=== PATIENT | female | born 1985 | race Caucasian/White ===

== ENCOUNTER 2017-06-19 00:06 | Inpatient (IN) | payer BC ==
[2017-06-19] MEDS ORDERED: Methylergonovine 0.2 MG/1 ML Amp IM PRN (00:14)
[2017-06-19] MEDS ORDERED: Misoprostol 400 MCG (4 X 100 MCG TAB) RECTAL PRN (00:14)
[2017-06-19] MEDS ORDERED: Acetaminophen 325 MG Tab PO PRN (00:14)
[2017-06-19] MEDS ORDERED: Ondansetron 4 MG/2 ML SDV IV PRN (00:14)
[2017-06-19] MEDS ORDERED: Nalbuphine 20 MG/1 ML Amp IVPUSH PRN (00:14)
[2017-06-19] MEDS ORDERED: Sodium Chloride 0.9% 10 ML Syringe FLUSH PRN (00:14)
[2017-06-19] MEDS ORDERED: fentaNYL 100 MCG/2 ML SDV IVPUSH PRN (00:14)
[2017-06-19] MEDS ORDERED: Lidocaine 1% 30 ML SDV INJECT PRN (00:14)
[2017-06-19] MEDS ORDERED: Misoprostol 25 MCG (1/4 of 100 MCG) Tab VAG PRN (00:14)
[2017-06-19] MEDS ORDERED: Lactated Ringers 500 ML IV ONE (00:14)
[2017-06-19] MEDS ORDERED: Carboprost Tromethamine 250 MCG/1 ML Amp IM PRN (00:14)
--- NOTE | 2017-06-19 00:34 | PCM.LDHP ---
L&D History of Present Illness - General Date of Service: 06/19/17 Admit Problem/Dx: Patient Status Order with Admit Dx/Problem 06/19/17 00:14 Patient Status [ADT] Routine Admission Diagnosis/Problem Admission Diagnosis/Problem care Source of Information: Patient History Limitations: Reports: No Limitations - History of Present Illness Introduction:: 31-year-old at 41w0d presents for induction of labor for postdates. Patient has been feeling well. She is having lots of [place]ch contractions but no regular contractions. Baby has been active. No vaginal bleeding or leaking of fluid. No new headaches. She has had swelling in the hands and feet for the past several weeks. Past Medical History - Past Health History Medical/Surgical History: Denies Medical/Surgical History - Past Surgical History Head Surgeries/Procedures: Reports: None Social & Family History - Family History Cardiac: Reports: Hypertension (Mother) Oncologic: Reports: Prostate (Father), Skin (Melanoma--Mother) - Tobacco Use Smoking Status *Q: Never Smoker - Alcohol Use Alcohol Use History: No - Sexual History Sexual History: Reports: Sexually Active, Single Partner - Living Situation & Occupation Living situation: Reports: Occupation: Employed H&P Review of Systems - Review of Systems: Review Of Systems: See Below General: Reports: No Symptoms HEENT: Reports: No Symptoms Pulmonary: Reports: No Symptoms Cardiovascular: Reports: No Symptoms Gastrointestinal: Reports: No Symptoms Genitourinary: Reports: No Symptoms Musculoskeletal: Reports: No Symptoms Skin: Reports: No Symptoms Psychiatric: Reports: No Symptoms Neurological: Reports: No Symptoms Hematologic/Lymphatic: Reports: No Symptoms Immunologic: Reports: No Symptoms L&D Exam - Exam Exam: See Below - OB Specific Contraction Intensity: Irritability Movement: Active Heart Tones: Present Heart Tones per Min: 135 Heart Rate (FHR) Variability: Moderate (6-25 bmp) Presentation: Vertex - Arreola Score Arreola Score Cervix Position: Posterior Arreola Score Consistency: Soft Arreola Score Effacement: >80% Arreola Score Dilation: 1-2 cm Arreola Score Infant's Station: -2 Arreola Score Total: 7 - Exam General: Alert, Oriented HEENT: Mucosa Moist & Moody, Pupils Reactive Lungs: Clear to Auscultation, Normal Respiratory Effort Cardiovascular: Regular Rate, Regular Rhythm. No: Systolic Murmur, Diastolic Murmur Genitourinary: Normal external exam Back Exam: Normal Inspection, Full Range of Motion Extremities: Pedal Edema (1+ bilaterally) Skin: Warm, Dry, Intact Psychiatric: Alert - Problem List (1) Post-dates SNOMED Code(s): 14180786 ICD Code: O48.0 - POST-TERM Status: Acute Current Visit: Yes Problem List Initiated/Reviewed/Updated: Yes Orders Last 24hrs: Active Orders 24 hr Category Date Time Status Patient Status [ADT] Routine ADT 06/19/17 00:14 Ordered Communication Order [RC] ASDIRECTED Care 06/19/17 00:14 Ordered Communication Order [RC] ASDIRECTED Care 06/19/17 00:14 Ordered Communication Order [RC] ASDIRECTED Care 06/19/17 00:14 Ordered Communication Order [RC] ASDIRECTED Care 06/19/17 00:14 Ordered Communication Order [RC] ASDIRECTED Care 06/19/17 00:14 Ordered Communication Order [RC] ASDIRECTED Care 06/19/17 00:14 Ordered Heart Tones [RC] PER UNIT ROUTINE Care 06/19/17 00:14 Ordered Monitoring [RC] PER UNIT ROUTINE Care 06/19/17 00:14 Ordered Notify Provider Vital Signs OB [RC] ASDIRECTED Care 06/19/17 00:14 Ordered Notify Provider [RC] PRN Care 06/19/17 00:14 Ordered Notify Provider [RC] PRN Care 06/19/17 00:14 Ordered Notify Provider [RC] PRN Care 06/19/17 00:14 Ordered Notify Provider [RC] STAT Care 06/19/17 00:14 Ordered Peripheral IV Care [RC] . DIRECTED Care 06/19/17 00:15 Ordered Pump Management, Intrathecal [RC] ASDIRECTED Care 06/19/17 00:14 Ordered Up ad Martha [RC] ASDIRECTED Care 06/19/17 00:14 Ordered Up ad Martha [RC] PER UNIT ROUTINE Care 06/19/17 00:14 Ordered Vaginal Exam [RC] PRN Care 06/19/17 00:14 Ordered Vital Signs [RC] PER UNIT ROUTINE Care 06/19/17 00:14 Ordered Vital Signs [RC] PER UNIT ROUTINE Care 06/19/17 00:14 Ordered Clear Liquid Diet [DIET] Diet 06/19/17 Breakfast Ordered ALKALINE PHOSPHATASE [CHEM] Routine Lab 06/19/17 00:27 Ordered ASPARTATE AMNIOTRANSFERASE,AST [CHEM] Routine Lab 06/19/17 00:27 Ordered BLOOD UREA NITROGEN,BUN [CHEM] Routine Lab 06/19/17 00:27 Ordered CBC W/O DIFF,HEMOGRAM [HEME] Routine Lab 06/19/17 00:14 Ordered CREATININE W/GFR [CHEM] Routine Lab 06/19/17 00:27 Ordered LACTATE DEHYDROGENASE,LDH [CHEM] Routine Lab 06/19/17 00:27 Ordered PROTEIN/CREATININE RATIO,URINE [URCHEM] Routine Lab 06/19/17 00:27 Uncollected URIC ACID [CHEM] Routine Lab 06/19/17 00:27 Ordered Acetaminophen [Tylenol] Med 06/19/17 00:14 Ordered 650 mg PO Q4H PRN Carboprost Tromethamine [Hemabate DS] Med 06/19/17 00:14 Ordered 250 mcg IM ASDIRECTED PRN Lactated Ringers @ 125 MLS/HR(1000ml) Med 06/19/17 00:15 Ordered Lactated Ringers [Ringers, Lactated] 1,000 ml IV ASDIRECTED Lactated Ringers [Ringers, Lactated] 500 ml Med 06/19/17 00:14 Ordered IV .BOLUS Lidocaine 1% [Xylocaine-MPF 1%] Med 06/19/17 00:14 Ordered 10 ml INJECT ASDIRECTED PRN Methylergonovine [Methergine] Med 06/19/17 00:14 Ordered 0.2 mg IM ASDIRECTED PRN Misoprostol [Cytotec] Med 06/19/17 00:14 Ordered 25 mcg VAG Q4H PRN Misoprostol [Cytotec] Med 06/19/17 00:14 Ordered 800 mcg RECTAL ASDIRECTED PRN Nalbuphine [Nubain] Med 06/19/17 00:14 Ordered 10 mg IVPUSH Q3H PRN Ondansetron [Zofran] Med 06/19/17 00:14 Ordered 4 mg IV Q4H PRN Oxytocin 30 Units in NS @ 2 MUNITS/MIN(500ml) Med 06/19/17 00:15 Ordered Oxytocin/Normal Saline [Pitocin in NS 30 UNIT/500 ML] 30 unit in 500 ml IV TITRATE Sodium Chloride 0.9% [Saline Flush] Med 06/19/17 00:14 Ordered 10 ml FLUSH ASDIRECTED PRN fentaNYL [Sublimaze] Med 06/19/17 00:14 Ordered 50 mcg IVPUSH Q1H PRN Peripheral IV Insertion Adult [OM.PC] Urgent Oth 06/19/17 00:14 Ordered Saline Lock Insert [OM.PC] Routine Oth 06/19/17 00:14 Ordered Resuscitation Status Routine Resus Stat 06/19/17 00:14 Ordered Medication Orders Acetaminophen (Tylenol) 650 mg PO Q4H PRN PRN Reason: Pain (Mild 1-3) and fever Carboprost Tromethamine (Hemabate Ds) 250 mcg IM ASDIRECTED PRN PRN Reason: HEMORRHAGE Fentanyl (Sublimaze) 50 mcg IVPUSH Q1H PRN PRN Reason: Pain (moderate 4-6) Lactated Ringer's (Ringers, Lactated) 500 mls @ 999 mls/hr IV .BOLUS ONE Stop: 06/19/17 00:44 Lactated Ringer's (Ringers, Lactated) 1,000 mls @ 125 mls/hr IV ASDIRECTED AIDEN Oxytocin/Sodium Chloride (Pitocin In Ns 30 Unit/500 Ml) 30 unit in 500 mls @ 2 mls/hr IV TITRATE AIDEN; 2 MUNITS/MIN PRN Reason: Protocol Lidocaine HCl (Xylocaine-Mpf 1%) 10 ml INJECT ASDIRECTED PRN PRN Reason: Perineal Repair Methylergonovine Maleate (Methergine) 0.2 mg IM ASDIRECTED PRN PRN Reason: Hemorrhage Misoprostol (Cytotec) 800 mcg RECTAL ASDIRECTED PRN PRN Reason: Hemorrhage Misoprostol (Cytotec) 25 mcg VAG Q4H PRN PRN Reason: cervical ripening Nalbuphine HCl (Nubain) 10 mg IVPUSH Q3H PRN PRN Reason: Pain (moderate 4-6) Ondansetron HCl (Zofran) 4 mg IV Q4H PRN PRN Reason: Nausea/Vomiting Sodium Chloride (Saline Flush) 10 ml FLUSH ASDIRECTED PRN PRN Reason: Keep Vein Open Assessment/Plan Comment:: 31-year-old at 41w0d for induction of labor for postdates 1. Admit to L&D 2. Cytotec every 4 hours PRN for cervical ripening 3. Pitocin for augmentation of labor if indicated 4. AROM when able 5. Patient's initial BP was elevated so will obtain PIH labs 6. Expectant management. Anticipate . Vika Pearce MD
[2017-06-19] MEDS: Oxytocin/Normal Saline 30 UNIT/500 ML BAG IV SCH ×3 (06:08→21:10)
[2017-06-19] MEDS: Lactated Ringers 1,000 ML IV SCH ×3 (08:28→17:23)
[2017-06-19] MEDS ORDERED: fentaNYL 100 MCG/2 ML SDV ONE (12:31)
[2017-06-19] MEDS ORDERED: EPINEPHrine 1 MG/ML SDV ONE (12:31)
--- NOTE | 2017-06-19 12:57 | PCM.SN ---
- Free Text/Narrative Note: Intrathecal. Sitting position, sterile prep and drape. 1 % lidocaine w bicarb for skinwheal to L2 L3 interspace, introducer, 24 ga pencan x 1. Pos CSF, neg heme, neg parsthesia. 0.1 ml pf 1:1000 epi, 0.4 ml pf ns , 20 mcg pf sufenta, 30 mcg pf fentanyl and 6 mg of 0.75% pf bupivacaine injected after CSF aspiration. Pt to L lateral position, procedure time 1235 to 1300
[2017-06-19] MEDS ORDERED: Benzocaine/Menthol 20%-0.5% Spray 56 GM Canister TOP PRN (20:14)
[2017-06-19] MEDS ORDERED: Simethicone 80 MG Tab.Chew PO PRN (20:14)
[2017-06-19] MEDS ORDERED: Oxytocin 10 Units/1 ML SDV IM PRN (20:14)
--- NOTE | 2017-06-19 20:23 | PCM.DEL ---
L & D Note - General Info Date of Service: 06/19/17 Mother's Due Date: 06/12/17 - Delivery Note Labor: Augmented by Oxytocin, Induced by ARM Cervical Ripening Method: Misoprostil Delivery Outcome: Livebirth Infant Delivery Method: Spontaneous Vaginal Delivery-Single Delivery Mode: Vacuum Extraction Presentation: Vertex Nuchal Cord: None Anesthesia Type: Local, Intrathecal Anesthetic: Lidocaine (Xylocaine) 1% Plain Local Anesthetic Volume: 4cc Amniotic Fluid Description: Meconium Stained Episiotomy Type: None Laceration: 1st Degree, Labial (Right) Suture type: Vicryl Suture size: 4-0 Placenta: Intact, Spontaneous Cord: 3 Vessels Estimated Blood Loss: 275 Resuscitation Needed: Yes : Suctioned, Bulb Syringe, Stimulated, Warmed, Mcalester Used, Warmer Used Provider: Vika Pearce Score 1 min: 6 Score 5 min: 9 Post Delivery Events: Shoulder Dystocia (Resolved with McRobert's and suprapubic pressure) Delivery Comments (Free Text/Narrative):: 31-year-old female presented for IOL at 41w0d. 1 dose of Cytotec was used for cervical ripening. Pitocin and AROM were used for augmentation of labor. Patient received an intrathecal for pain control. She progressed to complete dilation around 1600 today and labored down. She started pushing around 1705. Patient pushed well with slow but steady progress. At approximately 1920, the decision was made to proceed with vacuum extraction due to maternal fatigue. The vaccum was applied for 14 minutes. Good progress was noted with each contraction. There were no pop-offs. head was delivered without difficulty. A shoulder dystocia was noted. Patient was placed in McRobert's positive and suprapubic pressure was applied. Shoulder then delivered. Baby was taken to the warmer for resuscitation and had Apgars of 6 and 9 at 1 and 5 minutes respectively. Perineum was examined and found to be intact. A 1st degree labial tear was noted and was repaired with 4-0 Vicryl. The placenta delivered a short time later and was noted to be intact. Initially bleeding was appropriate but increased about 4 minutes after delivery of the placenta. Fundal massage was performed. Several large clots were removed from the lower uterine segment. Bleeding was then noted to be appropriate. Patient tolerated the procedure well. Induction Criteria - Arreola Score Arreola Score Dilation: 1-2 cm Arreola Score Effacement: >80% Arreola Score 's Station: -2 Arreola Score Consistency: Soft Arreola Score Cervix Position: Posterior Arreola Score Total: 7 Arreola Score Presenting Part: Reports: Cephalic - Induction Gestational Age >/= 39 wks: Yes Estimated Pelvis: Reports: Adequate Reassuring Monitoring Strip: Yes Absence of Tachy Systole: Yes - Augmentation Estimated Pelvis: Reports: Adequate Weight Estimated:: Reports: AGA Reassuring Monitoring Strip: Yes Absence of Tachy Systole: Yes Vacuum Extractor Progress Note - Alternative Labor Strategies Considered Alternative Labor Strategies Considered:: Reports: Yes Strategies Considered:: Reports: Position Changes Used to Facilitate Rotation & Descent, Empty Bladder, Rest Indications Considered:: Reports: Yes Indications:: Reports: Shortening of 2nd Stage for Maternal Benefit - Patient Prepared Patient Prepared:: Reports: Yes Informed Consent:: Reports: Verbal Risks: Reports: Yes Risks Include:: Reports: Shoulder Dystocia, Maternal Injury Anesthesia/Analgesia Adequate:: Reports: Yes - Probability of Success High Probability of Success:: Reports: Yes Weight Estimated:: Reports: AGA Patient Diabetic:: Reports: No Pelvis Adequate:: Reports: Yes Asynclitic:: Reports: No Station:: 2+ - Application Time Maximum Application Time & Number of Pop-Offs Predetermined:: Reports: Yes (3) Type of Vacuum Used:: Reports: Cup: Mushroom type Vacuum Extraction: Successful - Exit Strategy Exit strategy available:: Reports: Yes and resuscitation teams readily available:: Reports: Yes - Patient Data Vitals - Most Recent: Last Vital Signs Temp 36.2 C 06/19/17 14:30 Pulse 60 06/19/17 15:30 Resp 16 06/19/17 15:00 BP 134/65 06/19/17 15:30 Pulse Ox 100 06/19/17 15:30 Weight - Most Recent: 103.873 kg I&O - Last 24 Hours: Intake & Output 06/19/17 06/19/17 06/19/17 06:59 14:59 22:59 Intake Total 1000 Output Total 500 Balance 1000 -500 Lab Results Last 24 Hours: Laboratory Results - last 24 hr 06/19/17 06/19/17 06/19/17 Range/Units 00:35 00:35 05:00 WBC 9.8 (5.0-10.0) 10^3/uL RBC 3.99 L (4.2-5.4) 10^6/uL Hgb 11.6 L (12.0-16.0) g/dL Hct 33.9 L (37.0-47.0) % MCV 85.0 (80-100) fL MCH 29.1 (27.0-34.0) pg MCHC 34.2 (33.0-35.0) g/dL Plt Count 332 (150-450) 10^3/uL BUN 12 (7-18) mg/dL Creatinine 0.7 (0.6-1.3) mg/dL Est Cr Clr Drug Dosing TNP Estimated GFR (MDRD) > 60 Uric Acid 4.7 (2.6-7.2) mg/dL AST 23 (10-42) IU/L Alkaline Phosphatase 179 H (42-121) IU/L Lactate Dehydrogenase 123 (91-180) IU/L Ur Random Creatinine 127 mg/dL U Random Total Protein 45 H (0.00-9.9) mg/dL Protein/Creatinin Ratio 0.35 Med Orders - Current: Current Medications Acetaminophen (Tylenol) 650 mg PO Q4H PRN PRN Reason: Pain (Mild 1-3) and fever Carboprost Tromethamine (Hemabate Ds) 250 mcg IM ASDIRECTED PRN PRN Reason: HEMORRHAGE Methylergonovine Maleate (Methergine) 0.2 mg IM ASDIRECTED PRN PRN Reason: Hemorrhage Misoprostol (Cytotec) 800 mcg RECTAL ASDIRECTED PRN PRN Reason: Hemorrhage Misoprostol (Cytotec) 25 mcg VAG Q4H PRN PRN Reason: cervical ripening Last Admin: 06/19/17 01:14 Dose: 25 mcg Ondansetron HCl (Zofran) 4 mg IV Q4H PRN PRN Reason: Nausea/Vomiting Last Admin: 06/19/17 12:29 Dose: 4 mg Sodium Chloride (Saline Flush) 10 ml FLUSH ASDIRECTED PRN PRN Reason: Keep Vein Open Discontinued Medications Epinephrine HCl (Adrenalin) Confirm Administered Dose 1 mg .ROUTE .STK-MED ONE Stop: 06/19/17 12:32 Fentanyl (Sublimaze) 50 mcg IVPUSH Q1H PRN PRN Reason: Pain (moderate 4-6) Fentanyl (Sublimaze) Confirm Administered Dose 100 mcg .ROUTE .STK-MED ONE Stop: 06/19/17 12:32 Lactated Ringer's (Ringers, Lactated) 500 mls @ 999 mls/hr IV .BOLUS ONE Stop: 06/19/17 00:44 Last Admin: 06/19/17 05:45 Dose: 999 mls/hr Lactated Ringer's (Ringers, Lactated) 1,000 mls @ 125 mls/hr IV ASDIRECTED AIDEN Last Admin: 06/19/17 17:23 Dose: 125 mls/hr Oxytocin/Sodium Chloride (Pitocin In Ns 30 Unit/500 Ml) 30 unit in 500 mls @ 2 mls/hr IV TITRATE AIDEN; 2 MUNITS/MIN PRN Reason: Protocol Last Titration: 06/19/17 20:04 Dose: 500 munits/min, 500 mls/hr Lidocaine HCl (Xylocaine-Mpf 1%) 10 ml INJECT ASDIRECTED PRN PRN Reason: Perineal Repair Last Admin: 06/19/17 19:47 Dose: 10 ml Nalbuphine HCl (Nubain) 10 mg IVPUSH Q3H PRN PRN Reason: Pain (moderate 4-6) Last Admin: 06/19/17 10:14 Dose: 10 mg Sodium Bicarbonate (Sodium Bicarbonate 4.2%) Confirm Administered Dose 5 meq .ROUTE .STK-MED ONE Stop: 06/19/17 12:32 Sufentanil Citrate (Sufenta) Confirm Administered Dose 50 mcg .ROUTE .STK-MED ONE Stop: 06/19/17 12:32 - Problem List & Annotations (1) Post-dates SNOMED Code(s): 09297984 Code(s): O48.0 - POST-TERM Status: Acute Current Visit: Yes (2) Status post vacuum-assisted vaginal delivery SNOMED Code(s): 089280965 Code(s): Z87.42 - PERSONAL HISTORY OF OTH DISEASES OF THE FEMALE GENITAL TRACT Status: Acute Current Visit: Yes (3) Obstetric labial laceration, delivered, current hospitalization SNOMED Code(s): 854946826 Code(s): O70.0 - FIRST DEGREE PERINEAL LACERATION DURING DELIVERY Status: Acute Current Visit: Yes - Problem List Review Problem List Initiated/Reviewed/Updated: Yes - My Orders Last 24 Hours: My Active Orders 06/19/17 00:14 Patient Status [ADT] Routine Communication Order [RC] ASDIRECTED Communication Order [RC] ASDIRECTED Communication Order [RC] ASDIRECTED Communication Order [RC] ASDIRECTED Communication Order [RC] ASDIRECTED Notify Provider Vital Signs OB [RC] ASDIRECTED Notify Provider [RC] PRN Notify Provider [RC] STAT Up ad Martha [RC] PER UNIT ROUTINE Vital Signs [RC] PER UNIT ROUTINE Acetaminophen [Tylenol] 650 mg PO Q4H PRN Carboprost Tromethamine [Hemabate DS] 250 mcg IM ASDIRECTED PRN Methylergonovine [Methergine] 0.2 mg IM ASDIRECTED PRN Misoprostol [Cytotec] 25 mcg VAG Q4H PRN Misoprostol [Cytotec] 800 mcg RECTAL ASDIRECTED PRN Ondansetron [Zofran] 4 mg IV Q4H PRN Sodium Chloride 0.9% [Saline Flush] 10 ml FLUSH ASDIRECTED PRN Peripheral IV Insertion Adult [OM.PC] Urgent Saline Lock Insert [OM.PC] Routine Resuscitation Status Routine 06/19/17 20:14 Up ad Martha [RC] ASDIRECTED Vital Signs [RC] PFP Consult to Glass Frame Fitter [CONS] Routine Benzocaine/Menthol [Dermoplast Pain Relief [place]] See Dose Instructions TOP Q4H PRN Docusate Sodium [Colace] 100 mg PO BID PRN Ibuprofen [Motrin] 800 mg PO Q8H PRN Oxytocin [Pitocin] 10 unit IM ONETIME PRN Simethicone 80 mg PO Q4H PRN Assess Lochia [WOMSER] Per Unit Routine Assess Uterine Involution [WOMSER] Per Unit Routine Breast Pump [WOMSER] Per Unit Routine Ice Therapy [OM.PC] Per Unit Routine Perineal Care [OM.PC] Per Unit Routine Saline Lock Insert [OM.PC] Urgent Sitz Bath [OM.PC] Per Unit Routine 06/20/17 Breakfast Regular Diet [DIET] - Assessment Assessment:: 31-year-old, now , status post VAVD at 41w0d - Plan Plan:: 1. Initiate routine cares 2. Mother plans to breastfeed 3. Closely monitor bleeding 4. Anticipate discharge 06/19/17 Vika Pearce MD
[2017-06-19] MEDS ORDERED: Labetalol 20 MG/4 ML Syringe IVPUSH ONE (21:55)
[2017-06-19] MEDS: Ibuprofen 800 MG Tab PO PRN (23:05)
[2017-06-19] MEDS: Docusate Sodium 100 MG Cap PO PRN (23:06)
[2017-06-20] MEDS: Ibuprofen 800 MG Tab PO PRN (16:40)
[2017-06-20] MEDS: Docusate Sodium 100 MG Cap PO PRN (22:40)
[2017-06-21] MEDS: Ibuprofen 800 MG Tab PO PRN (03:59)
[2017-06-21] MEDS: Docusate Sodium 100 MG Cap PO PRN (08:52)
[2017-06-21] MEDS ORDERED: fentaNYL 100 MCG/2 ML SDV ITHECAL ONE (11:14)
--- NOTE | 2017-06-21 11:14 | PCM.PNPP ---
- General Info Date of Service: 06/20/17 Subjective Update: 31-year-old, now , PPD#1 status post VAVD at 41w0d. Patient is doing well. She has some mild to moderate perineal pain but otherwise feels well. She is urinating without difficulty. She is ambulating and tolerating a general diet. No fever or chills. She is , which is going well. No concerns per patient or per nursing. Functional Status: Reports: Pain Controlled, Tolerating Diet, Ambulating, Urinating. Denies: New Symptoms - Review of Systems General: Reports: No Symptoms HEENT: Reports: No Symptoms Pulmonary: Reports: No Symptoms Cardiovascular: Reports: No Symptoms Gastrointestinal: Reports: No Symptoms Musculoskeletal: Reports: No Symptoms Skin: Reports: No Symptoms Neurological: Reports: No Symptoms Psychiatric: Reports: No Symptoms - General Info Date of Service: 06/20/17 - Patient Data Vital Signs - Most Recent: Last Vital Signs Temp 36.7 C 06/21/17 10:32 Pulse 85 06/21/17 10:32 Resp 16 06/21/17 10:32 BP 143/79 H 06/21/17 10:32 Pulse Ox 99 06/21/17 10:32 Weight - Most Recent: 103.873 kg Med Orders - Current: Current Medications Acetaminophen (Tylenol) 650 mg PO Q4H PRN PRN Reason: Pain (Mild 1-3) and fever Last Admin: 06/21/17 08:52 Dose: 650 mg Benzocaine/Menthol (Dermoplast Pain Relief [place]) 0 gm TOP Q4H PRN PRN Reason: Perineal comfort measures Last Admin: 06/19/17 23:06 Dose: 1 spray Carboprost Tromethamine (Hemabate Ds) 250 mcg IM ASDIRECTED PRN PRN Reason: HEMORRHAGE Docusate Sodium (Colace) 100 mg PO BID PRN PRN Reason: Constipation Last Admin: 06/21/17 08:52 Dose: 100 mg Ibuprofen (Motrin) 800 mg PO Q8H PRN PRN Reason: Mild Pain or Fever Last Admin: 06/21/17 03:59 Dose: 800 mg Methylergonovine Maleate (Methergine) 0.2 mg IM ASDIRECTED PRN PRN Reason: Hemorrhage Misoprostol (Cytotec) 800 mcg RECTAL ASDIRECTED PRN PRN Reason: Hemorrhage Misoprostol (Cytotec) 25 mcg VAG Q4H PRN PRN Reason: cervical ripening Last Admin: 06/19/17 01:14 Dose: 25 mcg Ondansetron HCl (Zofran) 4 mg IV Q4H PRN PRN Reason: Nausea/Vomiting Last Admin: 06/19/17 12:29 Dose: 4 mg Oxytocin (Pitocin) 10 unit IM ONETIME PRN PRN Reason: Bleeding Simethicone (Simethicone) 80 mg PO Q4H PRN PRN Reason: Gas Sodium Chloride (Saline Flush) 10 ml FLUSH ASDIRECTED PRN PRN Reason: Keep Vein Open Discontinued Medications Epinephrine HCl (Adrenalin) Confirm Administered Dose 1 mg .ROUTE .STK-MED ONE Stop: 06/19/17 12:32 Last Admin: 06/19/17 22:52 Dose: Not Given Fentanyl (Sublimaze) 50 mcg IVPUSH Q1H PRN PRN Reason: Pain (moderate 4-6) Fentanyl (Sublimaze) Confirm Administered Dose 100 mcg .ROUTE .STK-MED ONE Stop: 06/19/17 12:32 Last Admin: 06/19/17 22:52 Dose: Not Given Lactated Ringer's (Ringers, Lactated) 500 mls @ 999 mls/hr IV .BOLUS ONE Stop: 06/19/17 00:44 Last Admin: 06/19/17 05:45 Dose: 999 mls/hr Lactated Ringer's (Ringers, Lactated) 1,000 mls @ 125 mls/hr IV ASDIRECTED AIDEN Last Admin: 06/19/17 17:23 Dose: 125 mls/hr Oxytocin/Sodium Chloride (Pitocin In Ns 30 Unit/500 Ml) 30 unit in 500 mls @ 2 mls/hr IV TITRATE AIDEN; 2 MUNITS/MIN PRN Reason: Protocol Last Titration: 06/19/17 22:00 Dose: 50 munits/min, 50 mls/hr Labetalol HCl (Normodyne) 20 mg IVPUSH NOW ONE PRN Reason: Protocol Stop: 06/19/17 21:56 Last Admin: 06/19/17 22:40 Dose: 20 mg Lidocaine HCl (Xylocaine-Mpf 1%) 10 ml INJECT ASDIRECTED PRN PRN Reason: Perineal Repair Last Admin: 06/19/17 19:47 Dose: 10 ml Nalbuphine HCl (Nubain) 10 mg IVPUSH Q3H PRN PRN Reason: Pain (moderate 4-6) Last Admin: 06/19/17 10:14 Dose: 10 mg Sodium Bicarbonate (Sodium Bicarbonate 4.2%) Confirm Administered Dose 5 meq .ROUTE .STK-MED ONE Stop: 06/19/17 12:32 Last Admin: 06/19/17 22:52 Dose: Not Given Sufentanil Citrate (Sufenta) Confirm Administered Dose 50 mcg .ROUTE .STK-MED ONE Stop: 06/19/17 12:32 Last Admin: 06/19/17 22:53 Dose: Not Given - Infant Interaction Disposition, : Four States in Room with Family Interaction: Holding Feeding: Breastfed ; Nursed Well Support Person: - Recovery Exam Fundal Tone: Firm Fundal Level: 2 Fingerbreadths Below Umbilicus Fundal Placement: Midline Lochia Amount: Small Lochia Color: Rubra/Red Perineum Description: Intact, Minimal Bruising/Swelling Episiotomy/Laceration: Approximated Bladder Status: Nonpalpable - Exam General: Alert, Oriented Lungs: Clear to Auscultation, Normal Respiratory Effort Cardiovascular: Regular Rate, Regular Rhythm GI/Abdominal Exam: Soft, Non-Tender Extremities: Pedal Edema (1+ bilaterally) Skin: Warm, Dry, Intact - Problem List & Annotations (1) Post-dates SNOMED Code(s): 86437511 Code(s): O48.0 - POST-TERM Status: Acute Current Visit: Yes (2) Status post vacuum-assisted vaginal delivery SNOMED Code(s): 980150734 Code(s): Z87.42 - PERSONAL HISTORY OF OTH DISEASES OF THE FEMALE GENITAL TRACT Status: Acute Current Visit: Yes (3) Obstetric labial laceration, delivered, current hospitalization SNOMED Code(s): 123347977 Code(s): O70.0 - FIRST DEGREE PERINEAL LACERATION DURING DELIVERY Status: Acute Current Visit: Yes - Problem List Review Problem List Initiated/Reviewed/Updated: Yes - My Orders Last 24 Hours: My Active Orders 06/21/17 10:05 Ready for Discharge [RC] PER UNIT ROUTINE - Assessment Assessment:: 31-year-old, now , PPD#1 status post VAVD at 41w0d - Plan Plan:: 1. Continue routine cares 2. Mother plans to breastfeed 3. Anticipate discharge 06/21/17 Vika Pearce MD
--- NOTE | 2017-06-21 11:22 | PCM.DCSUM1 ---
Discharge Summary - Hospital Course Free Text/Narrative:: 31-year-old PPD#2 status post VAVD at 41w0d - Discharge Data Discharge Date: 06/21/17 Discharge Disposition: Home, Self-Care 01 Condition: Good - Discharge Diagnosis/Problem(s) (1) Post-dates SNOMED Code(s): 89411976 ICD Code: O48.0 - POST-TERM Status: Acute Current Visit: Yes (2) Status post vacuum-assisted vaginal delivery SNOMED Code(s): 645875280 ICD Code: Z87.42 - PERSONAL HISTORY OF OTH DISEASES OF THE FEMALE GENITAL TRACT Status: Acute Current Visit: Yes (3) Obstetric labial laceration, delivered, current hospitalization SNOMED Code(s): 654761576 ICD Code: O70.0 - FIRST DEGREE PERINEAL LACERATION DURING DELIVERY Status: Acute Current Visit: Yes - Patient Summary/Data Operative Procedure(s) Performed: Vacuum assisted vaginal delivery Complications: None Consults: Consultations 06/19/17 20:14 Consult to Copy Machine Operator [CONS] Routine Labs Pending at D/C: None Recommended Follow-up Testing/Procedures: None Planned Operative Procedure(s) after DC: None Hospital Course: Please see subjective section. - Patient Instructions Diet: Usual Diet as Tolerated Activity: As Tolerated, No Lifting Over 20 Pounds Driving: May Drive Today Showering/Bathing: May Shower Notify Provider of: Fever, Increased Pain, Swelling and Redness, Nausea and/or Vomiting - Discharge Plan Home Medications: Home Meds #103/Iron Fumarate/Fa [ ] 1 each PO DAILY 06/19/17 [ History] Ranitidine HCl [Zantac 75] 75 mg PO ACBREAKFAST PRN 06/19/17 [History] Acetaminophen [Tylenol] 650 mg PO Q4H PRN tablet 06/21/17 [Rx] Docusate Sodium [Colace] 100 mg PO BID PRN cap 06/21/17 [Rx] Ibuprofen [IJD: Ibuprofen] 800 mg PO Q8H PRN tablet 06/21/17 [Rx] Patient Handouts: Vaginal Delivery, Vaginal Laceration, Care After Vaginal Delivery Referrals: Vika Pearce MD [Primary Care Provider] - (6-8 weeks for routine cares) - Discharge Summary/Plan Comment Discharge Summary/Plan Comment: Discharge home today. Follow-up in 6-8 weeks for check. Will do BP check on Monday when baby is seen. Reasons to return sooner were discussed with patient, and all questions were answered. Vika Pearce MD - General Info Date of Service: 06/21/17 Subjective Update: 31-year-old, now , PPD#2 status post VAVD at 41w0d. Patient is doing well. Perineal pain is improved today. She is urinating without difficulty. She is ambulating and tolerating a general diet. No fever or chills. She is , which is going well. No concerns per patient. Nursing noted that blood pressures have been intermittently elevated in the 140s/80s-90s Functional Status: Reports: Pain Controlled, Tolerating Diet, Ambulating, Urinating - Review of Systems General: Reports: No Symptoms HEENT: Reports: No Symptoms Pulmonary: Reports: No Symptoms Cardiovascular: Reports: No Symptoms Gastrointestinal: Reports: No Symptoms Genitourinary: Reports: No Symptoms Musculoskeletal: Reports: No Symptoms Skin: Reports: No Symptoms Neurological: Reports: No Symptoms - Patient Data Vitals - Most Recent: Last Vital Signs Temp 36.7 C 06/21/17 10:32 Pulse 85 06/21/17 10:32 Resp 16 06/21/17 10:32 BP 143/79 H 06/21/17 10:32 Pulse Ox 99 06/21/17 10:32 Weight - Most Recent: 103.873 kg Med Orders - Current: Current Medications Acetaminophen (Tylenol) 650 mg PO Q4H PRN PRN Reason: Pain (Mild 1-3) and fever Last Admin: 06/21/17 08:52 Dose: 650 mg Benzocaine/Menthol (Dermoplast Pain Relief [place]) 0 gm TOP Q4H PRN PRN Reason: Perineal comfort measures Last Admin: 06/19/17 23:06 Dose: 1 spray Carboprost Tromethamine (Hemabate Ds) 250 mcg IM ASDIRECTED PRN PRN Reason: HEMORRHAGE Docusate Sodium (Colace) 100 mg PO BID PRN PRN Reason: Constipation Last Admin: 06/21/17 08:52 Dose: 100 mg Ibuprofen (Motrin) 800 mg PO Q8H PRN PRN Reason: Mild Pain or Fever Last Admin: 06/21/17 03:59 Dose: 800 mg Methylergonovine Maleate (Methergine) 0.2 mg IM ASDIRECTED PRN PRN Reason: Hemorrhage Misoprostol (Cytotec) 800 mcg RECTAL ASDIRECTED PRN PRN Reason: Hemorrhage Misoprostol (Cytotec) 25 mcg VAG Q4H PRN PRN Reason: cervical ripening Last Admin: 06/19/17 01:14 Dose: 25 mcg Ondansetron HCl (Zofran) 4 mg IV Q4H PRN PRN Reason: Nausea/Vomiting Last Admin: 06/19/17 12:29 Dose: 4 mg Oxytocin (Pitocin) 10 unit IM ONETIME PRN PRN Reason: Bleeding Simethicone (Simethicone) 80 mg PO Q4H PRN PRN Reason: Gas Sodium Chloride (Saline Flush) 10 ml FLUSH ASDIRECTED PRN PRN Reason: Keep Vein Open Discontinued Medications Epinephrine HCl (Adrenalin) Confirm Administered Dose 1 mg .ROUTE .STK-MED ONE Stop: 06/19/17 12:32 Last Admin: 06/19/17 22:52 Dose: Not Given Fentanyl (Sublimaze) 50 mcg IVPUSH Q1H PRN PRN Reason: Pain (moderate 4-6) Fentanyl (Sublimaze) Confirm Administered Dose 100 mcg .ROUTE .STK-MED ONE Stop: 06/19/17 12:32 Last Admin: 06/19/17 22:52 Dose: Not Given Lactated Ringer's (Ringers, Lactated) 500 mls @ 999 mls/hr IV .BOLUS ONE Stop: 06/19/17 00:44 Last Admin: 06/19/17 05:45 Dose: 999 mls/hr Lactated Ringer's (Ringers, Lactated) 1,000 mls @ 125 mls/hr IV ASDIRECTED AIDEN Last Admin: 06/19/17 17:23 Dose: 125 mls/hr Oxytocin/Sodium Chloride (Pitocin In Ns 30 Unit/500 Ml) 30 unit in 500 mls @ 2 mls/hr IV TITRATE AIDEN; 2 MUNITS/MIN PRN Reason: Protocol Last Titration: 06/19/17 22:00 Dose: 50 munits/min, 50 mls/hr Labetalol HCl (Normodyne) 20 mg IVPUSH NOW ONE PRN Reason: Protocol Stop: 06/19/17 21:56 Last Admin: 06/19/17 22:40 Dose: 20 mg Lidocaine HCl (Xylocaine-Mpf 1%) 10 ml INJECT ASDIRECTED PRN PRN Reason: Perineal Repair Last Admin: 06/19/17 19:47 Dose: 10 ml Nalbuphine HCl (Nubain) 10 mg IVPUSH Q3H PRN PRN Reason: Pain (moderate 4-6) Last Admin: 06/19/17 10:14 Dose: 10 mg Sodium Bicarbonate (Sodium Bicarbonate 4.2%) Confirm Administered Dose 5 meq .ROUTE .STK-MED ONE Stop: 06/19/17 12:32 Last Admin: 06/19/17 22:52 Dose: Not Given Sufentanil Citrate (Sufenta) Confirm Administered Dose 50 mcg .ROUTE .STK-MED ONE Stop: 06/19/17 12:32 Last Admin: 06/19/17 22:53 Dose: Not Given - Exam General: Reports: Alert, Oriented Lungs: Reports: Clear to Auscultation, Normal Respiratory Effort Cardiovascular: Reports: Regular Rate, Regular Rhythm, No Murmurs GI/Abdominal Exam: Soft, Non-Tender Extremities: Pedal Edema (1+ bilaterally) Skin: Reports: Warm, Dry, Intact *Q Meaningful Use (DIS) - VTE *Q VTE Criteria *Q: - Stroke *Q Stroke Criteria *Q: - AMI *Q AMI Criteria *Q:
== END 2017-06-21 11:15 | disposition home or self-care (01) | DRG 560 ==
LOC: DL.OBCHECK 00:06 → DL.OB 00:07 → OBSVTOIN 19:43 → DL.OB 19:43
PROVIDERS: ADMIT Family Medicine; ATTEND Family Medicine
PROC: 10D07Z6 Extraction of Products of Conception, Vacuum, Via Natural or Artificial Opening (ICD-10-PCS; principal; 2017-06-19)
PROC: 10907ZC Drainage of Amniotic Fluid, Therapeutic from Products of Conception, Via Natural or Artificial Opening (ICD-10-PCS; 2017-06-19)
PROC: 0HQ9XZZ Repair Perineum Skin, External Approach (ICD-10-PCS; 2017-06-19)
PROC: 00HU33Z Insertion of Infusion Device into Spinal Canal, Percutaneous Approach (ICD-10-PCS; 2017-06-19)
PROC: 3E0R3BZ Introduction of Anesthetic Agent into Spinal Canal, Percutaneous Approach (ICD-10-PCS; 2017-06-19)
DX: O48.0 Post-term pregnancy (principal); Z3A.41 41 weeks gestation of pregnancy; Z37.0 Single live birth; O77.0 Labor and delivery complicated by meconium in amniotic fluid; O70.0 First degree perineal laceration during delivery
CPT/HCPCS: 36415; 59300; 59409; 82565; 82570; 83615; 84075; 84156; 84450; 84460; 84520; 84550; 85025; 85027; A9270-GY; J2300; J2405; J2590; J3010; J7120

== ENCOUNTER 2020-05-05 02:06 | Inpatient (IN) | payer BC ==
--- NOTE | 2020-05-05 01:48 | PCM.LDHP ---
<Nichelle Haskins R - Last Filed: 05/05/20 12:50> L&D History of Present Illness - General Admit Problem/Dx: Patient Status Order with Admit Dx/Problem 05/05/20 11:00 Patient Status [ADT] Routine Admission Diagnosis/Problem Admission Diagnosis/Problem Term - Related Data Allergies/Adverse Reactions: Allergies Allergy/AdvReac Type Severity Reaction Status Date / Time No Known Allergies Allergy Verified 08/27/18 02:00 Home Medications: Home Meds #103/Iron Fumarate/Fa [ ] 1 each PO DAILY 06/19/17 [History] raNITIdine HCL [Zantac 75] 75 mg PO BID PRN 06/19/17 [History] Acetaminophen [Tylenol] 650 mg PO Q4H PRN tablet 06/21/17 [Rx] Docusate Sodium [Colace] 100 mg PO BID PRN cap 08/29/18 [Rx] Ibuprofen [Motrin] 800 mg PO Q8H PRN tablet 08/29/18 [Rx] H&P Review of Systems - Review of Systems: Review Of Systems: See Below General: Reports: No Symptoms HEENT: Reports: No Symptoms Pulmonary: Reports: No Symptoms Cardiovascular: Reports: No Symptoms Gastrointestinal: Reports: No Symptoms Genitourinary: Reports: No Symptoms Skin: Reports: No Symptoms Psychiatric: Reports: No Symptoms L&D Exam - OB Specific Contraction Intensity: Mild Movement: Active Heart Tones: Present Heart Rate (FHR) Variability: Moderate (6-25 bmp) Presentation: Vertex - Exam General: Alert, Oriented Neck: Supple, Trachea Midline Lungs: Clear to Auscultation, Normal Respiratory Effort Cardiovascular: Regular Rate, Regular Rhythm GI/Abdominal Exam: Normal Bowel Sounds, Soft (Gravid), Non-Tender Genitourinary: Normal external exam Extremities: Normal Inspection, Pedal Edema (trace) Skin: Warm, Dry Psychiatric: Alert, Normal Affect - Patient Data Lab Results Last 24 hrs: Laboratory Results - last 24 hr 05/05/20 Range/Units 11:40 SARS CoV-2 RNA Rapid OLIVERIO Negative (NEGATIVE) Orders Last 24hrs: Active Orders 24 hr Category Date Time Status Patient Status [ADT] Routine ADT 05/05/20 11:00 Active Communication Order [RC] ASDIRECTED Care 05/05/20 01:30 Active Heart Tones [RC] PER UNIT ROUTINE Care 05/05/20 01:30 Active Non Stress Test [RC] PER UNIT ROUTINE Care 05/05/20 01:34 Active Notify Provider Vital Signs OB [RC] ASDIRECTED Care 05/05/20 01:30 Active Notify Provider [RC] PRN Care 05/05/20 01:30 Active Pump Management, Intrathecal [RC] ASDIRECTED Care 05/05/20 11:00 Active Up ad Martha [RC] ASDIRECTED Care 05/05/20 01:30 Active Vital Signs [RC] PER UNIT ROUTINE Care 05/05/20 01:30 Active Regular Diet [DIET] Diet 05/05/20 Lunch Active CBC W/O DIFF,HEMOGRAM [HEME] Routine Lab 05/05/20 11:00 Ordered Acetaminophen [TylenoL] Med 05/05/20 11:00 Active 650 mg PO Q4H PRN Carboprost Tromethamine [Hemabate DS] Med 05/05/20 11:00 Active 250 mcg IM ASDIRECTED PRN Lactated Ringers [Ringers, Lactated] 1,000 ml Med 05/05/20 01:30 Active IV ASDIRECTED Lidocaine 1% [Xylocaine-MPF 1%] Med 05/05/20 11:00 Active 30 ml INJECT ASDIRECTED PRN Methylergonovine [Methergine] Med 05/05/20 11:00 Active 0.2 mg IM ASDIRECTED PRN Ondansetron [Zofran] Med 05/05/20 11:00 Active 4 mg IVPUSH Q4H PRN Oxytocin/Normal Saline [Pitocin in NS 30 UNIT/500 ML] Med 05/05/20 11:00 Active 30 unit in 500 ml IV TITRATE Sodium Chloride 0.9% [Saline Flush] Med 05/05/20 11:00 Active 10 ml FLUSH ASDIRECTED PRN Tranexamic Acid [Cyklokapron] 1,000 mg Med 05/05/20 11:00 Active Sodium Chloride 0.9% [Normal Saline] 100 ml IV ONETIME miSOPROStoL [Cytotec] Med 05/05/20 11:00 Active 800 mcg RECTAL ASDIRECTED PRN Saline Lock Insert [OM.PC] Routine Oth 05/05/20 01:30 Ordered Resuscitation Status Routine Resus Stat 05/05/20 01:29 Ordered Medication Orders Acetaminophen (Tylenol) 650 mg PO Q4H PRN PRN Reason: Pain (Mild 1-3) and fever Carboprost Tromethamine (Hemabate Ds) 250 mcg IM ASDIRECTED PRN PRN Reason: HEMORRHAGE Tranexamic Acid 1,000 mg/ (Sodium Chloride) 110 mls @ 660 mls/hr IV ONETIME PRN PRN Reason: Bleeding Oxytocin/Sodium Chloride (Pitocin In Ns 30 Unit/500 Ml) 30 unit in 500 mls @ 2 mls/hr IV TITRATE AIDEN; Protocol Lactated Ringer's (Ringers, Lactated) 1,000 mls @ 125 mls/hr IV ASDIRECTED AIDEN Lidocaine HCl (Xylocaine-Mpf 1%) 30 ml INJECT ASDIRECTED PRN PRN Reason: Perineal Repair Methylergonovine Maleate (Methergine) 0.2 mg IM ASDIRECTED PRN PRN Reason: Hemorrhage Misoprostol (Cytotec) 800 mcg RECTAL ASDIRECTED PRN PRN Reason: Hemorrhage Ondansetron HCl (Zofran) 4 mg IVPUSH Q4H PRN PRN Reason: Nausea/Vomiting Sodium Chloride (Saline Flush) 10 ml FLUSH ASDIRECTED PRN PRN Reason: Keep Vein Open Assessment/Plan Comment:: Discussed options after cervical exam findings of 2.5/25/-2, will proceed with pitocin until able to AROM. Tamra will provide excellent labor cares as alaangie Dhruv Gabriele to provide wonder intrathecal if requesting E Divine <Nisa Mclaughlin M - Last Filed: 05/05/20 13:22> L&D History of Present Illness - General Date of Service: 05/05/20 (admit H&P) Admit Problem/Dx: Patient Status Order with Admit Dx/Problem 05/05/20 11:00 Patient Status [ADT] Routine Admission Diagnosis/Problem Admission Diagnosis/Problem Term 05/05/20 01:45 inductin @ 40w0d. Source of Information: Patient, Significant Other, Other ([facility] notes ) History Limitations: Reports: No Limitations - History of Present Illness Introduction:: 34yo @ 40w0d who presents for induction. Usual patient of Dr. Pearce's Hx macrosomia and anxiety. [place] gender. 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 hx macrosomia--both babies >93 with largest 9lb 9.6oz/4355g Psychiatric History: Reports: Anxiety - Infectious Disease History Infectious Disease History: Reports: Chicken Pox - Past Surgical History Head Surgeries/Procedures: Reports: None Social & Family History - Family History Family Medical History: Noncontributory Cardiac: Reports: Hypertension Oncologic: Reports: Prostate, Skin - Caffeine Use Caffeine Use: Reports: None - Sexual History Sexual History: Reports: Sexually Active, Single Partner - Living Situation & Occupation Living situation: Reports: Occupation: Employed H&P Review of Systems - Review of Systems: Review Of Systems: Comprehensive ROS is negative, except as noted in HPI. L&D Exam - Exam Exam: See Below - Patient Data Result Diagrams: 05/05/20 12:59 - Problem List (1) Blood type A+ SNOMED Code(s): 153819973 ICD Code: Z67.10 - TYPE A BLOOD, RH POSITIVE Status: Acute Current Visit: Yes (2) Rubella immune SNOMED Code(s): 271072399 ICD Code: Z78.9 - OTHER SPECIFIED HEALTH STATUS Status: Acute Current Visit: Yes (3) Group B Streptococcus not isolated SNOMED Code(s): 452406421 ICD Code: [id number] - Status: Acute Current Visit: Yes (4) Anxiety SNOMED Code(s): 09865134 ICD Code: F41.9 - ANXIETY DISORDER, UNSPECIFIED Status: Acute Current Visit: Yes (5) History of macrosomia in infant in prior , currently SNOMED Code(s): 92194741524487, 65867211276739 ICD Code: O09.299 - SUPRVSN OF PREG W POOR REPRODCTV OR OBSTET HISTORY, UNSP TRI Status: Acute Current Visit: No (6) Status post vacuum-assisted vaginal delivery SNOMED Code(s): 003589828, [id number] ICD Code: Z87.42 - PERSONAL HISTORY OF OTH DISEASES OF THE FEMALE GENITAL TRACT Status: Acute Current Visit: No Problem List Initiated/Reviewed/Updated: Yes Orders Last 24hrs: Active Orders 24 hr Category Date Time Status Patient Status [ADT] Routine ADT 05/05/20 11:00 Ordered Communication Order [RC] ASDIRECTED Care 05/05/20 01:30 Ordered Heart Tones [RC] PER UNIT ROUTINE Care 05/05/20 01:30 Ordered Non Stress Test [RC] PER UNIT ROUTINE Care 05/05/20 01:34 Ordered Notify Provider Vital Signs OB [RC] ASDIRECTED Care 05/05/20 01:30 Ordered Notify Provider [RC] PRN Care 05/05/20 01:30 Ordered Pump Management, Intrathecal [RC] ASDIRECTED Care 05/05/20 11:00 Ordered Up ad Martha [RC] ASDIRECTED Care 05/05/20 01:30 Ordered Vital Signs [RC] PER UNIT ROUTINE Care 05/05/20 01:30 Ordered Regular Diet [DIET] Diet 05/05/20 Lunch Ordered CBC W/O DIFF,HEMOGRAM [HEME] Routine Lab 05/05/20 11:00 Ordered CORONAVIRUS COVID-19 PCR PHL Stat Lab 05/05/20 11:00 Ordered Acetaminophen [TylenoL] Med 05/05/20 11:00 Ordered 650 mg PO Q4H PRN Carboprost Tromethamine [Hemabate DS] Med 05/05/20 11:00 Ordered 250 mcg IM ASDIRECTED PRN Lactated Ringers @ 125 MLS/HR(1000ml) Med 05/05/20 01:30 Ordered Lactated Ringers [Ringers, Lactated] 1,000 ml IV ASDIRECTED Lactated Ringers [Ringers, Lactated] 1,000 ml Med 05/05/20 11:00 Ordered IV BOLUS Lidocaine 1% [Xylocaine-MPF 1%] Med 05/05/20 11:00 Ordered 30 ml INJECT ASDIRECTED PRN Methylergonovine [Methergine] Med 05/05/20 11:00 Ordered 0.2 mg IM ASDIRECTED PRN Ondansetron [Zofran] Med 05/05/20 11:00 Ordered 4 mg IVPUSH Q4H PRN Oxytocin 30 Units in NS @ 2 MUNITS/MIN(500ml) Med 05/05/20 11:00 Ordered Oxytocin/Normal Saline [Pitocin in NS 30 UNIT/500 ML] 30 unit in 500 ml IV TITRATE Sodium Chloride 0.9% [Saline Flush] Med 05/05/20 11:00 Ordered 10 ml FLUSH ASDIRECTED PRN Tranexamic Acid [Cyklokapron] 1,000 mg Med 05/05/20 11:00 Ordered Sodium Chloride 0.9% [Normal Saline] 100 ml IV ONETIME miSOPROStoL [Cytotec] Med 05/05/20 11:00 Ordered 800 mcg RECTAL ASDIRECTED PRN Saline Lock Insert [OM.PC] Routine Oth 05/05/20 01:30 Ordered Resuscitation Status Routine Resus Stat 05/05/20 01:29 Ordered Assessment/Plan Comment:: Assessment: Eleanor is a delightful 34yo WF @ 40w0d presenting as scheduled for induction Hx macrosomia Hx VAVD Hx rapid delivery Hx anxiety on Zoloft Hx mild anemia of plans to breastfeed surprise gender Plan: admit to OB NST on admit COVID testing on admit cervical check on admit CBC on admit. consider Cytotec, Pitocin, AROM, etc as indicated after discussion. Dr. Haskins to be involved as planned. further management pending results and her clinical course and wishes. [email or web address]
[2020-05-05] MEDS ORDERED: Ondansetron 4 MG/2 ML SDV IVPUSH PRN (11:00)
[2020-05-05] MEDS ORDERED: Methylergonovine 0.2 MG/1 ML Amp IM PRN (11:00)
[2020-05-05] MEDS ORDERED: Oxytocin/Normal Saline 30 UNIT/500 ML BAG IV SCH (11:00)
[2020-05-05] MEDS ORDERED: Tranexamic Acid 1,000 MG in Sodium Chloride 0.9% 100 ML IV PRN ×2 (11:00→21:42)
[2020-05-05] MEDS ORDERED: Carboprost Tromethamine 250 MCG/1 ML Amp IM PRN (11:00)
[2020-05-05] MEDS ORDERED: Misoprostol 400 MCG (4 X 100 MCG TAB) RECTAL PRN (11:00)
[2020-05-05] MEDS ORDERED: Lidocaine 1% 30 ML SDV INJECT PRN (11:00)
[2020-05-05] MEDS ORDERED: Lactated Ringers 1,000 ML IV ONE (11:00)
[2020-05-05] MEDS ORDERED: Sodium Chloride 0.9% 10 ML Syringe FLUSH PRN ×2 (11:00→21:42)
[2020-05-05] MEDS: Lactated Ringers 1,000 ML IV SCH ×2 (13:46→20:03)
[2020-05-05] MEDS ORDERED: EPINEPHrine 1 MG/1 ML Amp ONE (17:44)
[2020-05-05] MEDS ORDERED: Sodium Bicarbonate 4.2% 2.5 MEQ/5 ML SDV ONE (17:44)
[2020-05-05] MEDS ORDERED: fentaNYL 100 MCG/2 ML SDV ONE (17:44)
--- NOTE | 2020-05-05 18:01 | PCM.SN.2 ---
- Free Text/Narrative Note: DOS05/05/2020 time of service 1730 PROCEDURE NOTE: Amniotomy aka Assisted Rupture of Membranes Cervix: /-2 Position: cephalic Membranes: now ruptured Verbal consent was obtained from the patient, reasons for the procedure were outlined along with the risks and benefits of the procedure reviewed with the patient. These include potential problems with an amniotomy such as intrauterine infection from digital or instrumental examination, early decelerations of the heart, potential for cord prolapse, bleeding from vessels, vessels of the cervix or low-lying placenta if low lying. The uterus was palpated and the position of the fetus confirmed as cephalic/vertex. SVE was performed confirming with a cervix dilation of 3cm and that there are intact membranes with adequate bulging amniotic sac for rupture, no cord was palpated near the presenting part or alongside the head. The procedure was done using an amnihook in the usual fashion the amniotic and chorionic membranes were split easily releasing liquor of slightly meconium stained coloration. Several small nicks of the hook on the thin walled membranes were required before they gave way. The patient tolerated the procedure very well and the child was closely monitored by EFM during the procedure and also tolerated the procedure well. Nichelle Haskins MD [employer] PGY3
--- NOTE | 2020-05-05 18:10 | PCM.SN.2 ---
- Free Text/Narrative Note: Intrathecal. Sitting position, sterile prep and drape. 1% lidocaine w bicarb for skinwheal to L 2 L3 interspace, introducer, 24 ga pencan x 1. Pos CSF, neg heme, neg parasthesia. 1:1000 pf epi wash, 20 mcg pf sufenta, 30 mcg pf fentanyl, 0.4 ml pf NS and 6 mg of 0.75% pf marcaine injected after CSF aspiration. Pt to L lateral position. Procedure time 1745 to 1815
--- NOTE | 2020-05-05 21:36 | PCM.DEL ---
L & D Note - General Info Date of Service: 05/05/20 Mother's Due Date: 05/05/20 - Delivery Note Labor: Spontaneous Delivery Outcome: Livebirth Infant Delivery Method: Spontaneous Vaginal Delivery-Single Infant Delivery Mode: Spontaneous Presentation: Left Occiput Anterior (MIAH) Nuchal Cord: None Anesthesia Type: Intrathecal Amniotic Fluid Description: Meconium Stained Episiotomy Type: None Laceration: None Placenta: Intact, Spontaneous Cord: 3 Vessels Estimated Blood Loss: 100 Resuscitation Needed: Yes : Bulb Syringe, Stimulated, Warmed Score 1 min: 8 Score 5 min: 9 Delivery Comments (Free Text/Narrative):: Patient presented for induction of labor secondary to history of rapid progression and short 2nd stage. She was induced with pitocin per unit protocol and AROM'd at approximately 3cm with meconium stained fluid. She received an intrathecal at 5cm and progressed from 5cm to complete rapidly. She delivered a viable infant female over an intact perineum. Placenta delivered spontaneously and intact, three vessel cord. No apparent complications. Induction Criteria - Arreola Score Arreola Score Dilation: 1-2 cm Arreola Score Effacement: 0-30% Arreola Score Infant's Station: -2 Arreola Score Consistency: Medium Arreola Score Cervix Position: Posterior Arreola Score Total: 3 Arreola Score Presenting Part: Reports: Cephalic - Induction Gestational Age >/= 39 wks: Yes Estimated Pelvis: Reports: Adequate Reassuring Monitoring Strip: Yes Absence of Tachy Systole: Yes - General Info Date of Service: 05/05/20 Admission Dx/Problem (Free Text): Patient Status Order with Admit Dx/Problem 05/05/20 11:00 Patient Status [ADT] Routine Admission Diagnosis/Problem Admission Diagnosis/Problem Term 05/05/20 01:45 inductin @ 40w0d. Subjective Update: Patient is now PPD0 of an uncomplicated . Functional Status: Reports: Pain Controlled - Review of Systems General: Reports: No Symptoms HEENT: Reports: No Symptoms Pulmonary: Reports: No Symptoms Cardiovascular: Reports: No Symptoms Gastrointestinal: Reports: No Symptoms Genitourinary: Reports: No Symptoms Skin: Reports: No Symptoms - Patient Data Vitals - Most Recent: Last Vital Signs Temp 99.1 F 05/05/20 20:00 Pulse 69 05/05/20 20:00 Resp 18 05/05/20 20:00 BP 140/78 05/05/20 20:00 Pulse Ox Weight - Most Recent: 219 lb I&O - Last 24 Hours: Intake & Output 05/05/20 05/05/20 05/05/20 06:59 14:59 22:59 Intake Total 1000 Balance 1000 Lab Results Last 24 Hours: Laboratory Results - last 24 hr 05/05/20 05/05/20 Range/Units 11:40 12:59 WBC 8.7 (5.0-10.0) 10^3/uL RBC 3.98 L (4.2-5.4) 10^6/uL Hgb 11.8 L (12.0-16.0) g/dL Hct 34.0 L (37.0-47.0) % MCV 85.4 (80-100) fL MCH 29.6 (27.0-34.0) pg MCHC 34.7 (33.0-35.0) g/dL Plt Count 281 D (150-450) 10^3/uL SARS CoV-2 RNA Rapid OLIVERIO Negative (NEGATIVE) Med Orders - Current: Current Medications Acetaminophen (Tylenol) 650 mg PO Q4H PRN PRN Reason: Pain (Mild 1-3) and fever Carboprost Tromethamine (Hemabate Ds) 250 mcg IM ASDIRECTED PRN PRN Reason: HEMORRHAGE Tranexamic Acid 1,000 mg/ (Sodium Chloride) 110 mls @ 660 mls/hr IV ONETIME PRN PRN Reason: Bleeding Oxytocin/Sodium Chloride (Pitocin In Ns 30 Unit/500 Ml) 30 unit in 500 mls @ 2 mls/hr IV TITRATE AIDEN; Protocol Last Titration: 05/05/20 20:26 Dose: 16 munits/min, 16 mls/hr Documented by: Lactated Ringer's (Ringers, Lactated) 1,000 mls @ 125 mls/hr IV ASDIRECTED AIDEN Last Admin: 05/05/20 20:03 Dose: 125 mls/hr Documented by: Lidocaine HCl (Xylocaine-Mpf 1%) 30 ml INJECT ASDIRECTED PRN PRN Reason: Perineal Repair Methylergonovine Maleate (Methergine) 0.2 mg IM ASDIRECTED PRN PRN Reason: Hemorrhage Misoprostol (Cytotec) 800 mcg RECTAL ASDIRECTED PRN PRN Reason: Hemorrhage Ondansetron HCl (Zofran) 4 mg IVPUSH Q4H PRN PRN Reason: Nausea/Vomiting Sodium Chloride (Saline Flush) 10 ml FLUSH ASDIRECTED PRN PRN Reason: Keep Vein Open Discontinued Medications Epinephrine HCl (Adrenalin) Confirm Administered Dose 1 mg .ROUTE .STK-MED ONE Stop: 05/05/20 17:45 Last Admin: 05/05/20 18:17 Dose: Not Given Documented by: Fentanyl (Sublimaze) Confirm Administered Dose 100 mcg .ROUTE .STK-MED ONE Stop: 05/05/20 17:45 Last Admin: 05/05/20 18:18 Dose: Not Given Documented by: Lactated Ringer's (Ringers, Lactated) 1,000 mls @ 999 mls/hr IV BOLUS ONE Stop: 05/05/20 12:00 Last Admin: 05/05/20 17:56 Dose: 999 mls/hr Documented by: Sodium Bicarbonate (Sodium Bicarbonate 4.2%) Confirm Administered Dose 2.5 meq .ROUTE .STK-MED ONE Stop: 05/05/20 17:45 Last Admin: 05/05/20 18:18 Dose: Not Given Documented by: Sufentanil Citrate (Sufenta) Confirm Administered Dose 50 mcg .ROUTE .STK-MED ONE Stop: 05/05/20 17:45 Last Admin: 05/05/20 18:18 Dose: Not Given Documented by: - Exam General: Alert, Oriented (Female) Exam: Normal External Exam, Normal Bimanual Exam Skin: Warm Psy/Mental Status: Alert, Normal Affect - Problem List & Annotations (1) Blood type A+ SNOMED Code(s): 013566137 Code(s): Z67.10 - TYPE A BLOOD, RH POSITIVE Status: Acute Current Visit: Yes (2) Group B Streptococcus not isolated SNOMED Code(s): 583654277 Code(s): ILR7724 - Status: Acute Current Visit: Yes (3) Rubella immune SNOMED Code(s): 644092280 Code(s): Z78.9 - OTHER SPECIFIED HEALTH STATUS Status: Acute Current Visit: Yes (4) Normal vaginal delivery SNOMED Code(s): 26102191, 899816374 Code(s): O80 - ENCOUNTER FOR FULL-TERM UNCOMPLICATED DELIVERY Status: Acute Current Visit: No - Problem List Review Problem List Initiated/Reviewed/Updated: Yes - Plan Plan:: Assessment: Eleanor is a delightful 34yo WF @ 40w0d presenting as scheduled for induction Hx macrosomia Hx VAVD Hx rapid delivery Hx anxiety on Zoloft Hx mild anemia of plans to breastfeed surprise gender Plan: admit to OB NST on admit COVID testing on admit cervical check on admit CBC on admit. consider Cytotec, Pitocin, AROM, etc as indicated after discussion. Dr. Haskins to be involved as planned. further management pending results and her clinical course and wishes. hmb UPDATE Assessment Eleanor is a delightful 34 year old WF now @ 40w0d presenting as scheduled for induction with the following Hx macrosomia Hx VAVD Hx rapid delivery Hx anxiety on Zoloft Hx mild anemia of plans to breastfeed Gender revealed to be Girl! Plan: COVID testing negative begin routine post cares monitor vitals Destiny Haskins MD
[2020-05-05] MEDS ORDERED: Simethicone 80 MG Tab.Chew PO PRN (21:42)
[2020-05-05] MEDS ORDERED: Benzocaine/Menthol 20%-0.5% Spray 56 GM Canister TOP PRN (21:42)
[2020-05-06] MEDS: Ibuprofen 800 MG Tab PO PRN ×3 (01:39→20:54)
[2020-05-06] MEDS: Acetaminophen 325 MG Tab PO PRN ×3 (01:40→20:55)
--- NOTE | 2020-05-06 09:49 | PCM.SN.2 ---
- Free Text/Narrative Note: Obstetrics Progress Note Post Day Number 1 Patient: Eleanor Hughes Admit Date: 05/05/2020 Today's Date: 05/06/2020 Subjective: Eleanor is day 1 s/p . She reports her lochia is minimal . She is . She has adequate pain control with ibuprofen and tylenol. She has been advancing her diet and has good PO intake. Patient denies nausea or vomiting. Patient has been urinating spontaneously. She has not had a bowel movement. She has been ambulating. She has no acute concerns. No acute events overnight. Objective: Vitals reviewed General: alert, in no acute distress Lungs: clear to auscultation bilaterally Heart: regular rate and rhythm, normal S1 S2, no murmurs Abdomen: soft, nontender, nondistended, bowel sounds present Uterus: Firm nontender 1 cm below the umbilicus. Lower extremities are nontender and have trace edema. Skin: is warm and dry, well perfused no visible lesions Lab Results: A positive hgb 8.7 RPR: non reactive Rubella: immune GBS negative HIV nonreactive Hep B nonreactive Assessment: Eleanor is a 34 year old no day 1 s/p Patient is stable and comfortable, no acute distress. No signs of anemia. Plan: Encourage ambulation. Advance diet as tolerated. Saline lock IV with good oral intake. Continue with advancing routine post cares. Plan for discharge antonia Haskins MD Traffic Administrator PGY3
[2020-05-06] MEDS: Docusate Sodium 100 MG Cap PO PRN ×2 (11:23→20:54)
[2020-05-07] MEDS: Ibuprofen 800 MG Tab PO PRN (04:55)
[2020-05-07] MEDS: Acetaminophen 325 MG Tab PO PRN ×2 (04:55→09:13)
[2020-05-07] MEDS: Docusate Sodium 100 MG Cap PO PRN (09:12)
--- NOTE | 2020-05-07 09:21 | PCM.DCSUM1 ---
Discharge Summary - Hospital Course Free Text/Narrative:: patient presented 05/05/2020 for IOL, induction with pitocin, uncomplicated . Hospital course has been uneventful. Diagnosis: Stroke: No Modified [place] Scale: No Symptoms at All Modified [place] Scale Score: 0 - Discharge Data Discharge Date: 05/07/20 Discharge Disposition: Home, Self-Care 01 Condition: Good - Referral to Home Health Primary Care Physician: Ed Pearce MD - Discharge Diagnosis/Problem(s) (1) Blood type A+ SNOMED Code(s): 945261019 ICD Code: Z67.10 - TYPE A BLOOD, RH POSITIVE Status: Acute Current Visit: Yes (2) Group B Streptococcus not isolated SNOMED Code(s): 641780146 ICD Code: [id number] - Status: Acute Current Visit: Yes (3) Rubella immune SNOMED Code(s): 534348931 ICD Code: Z78.9 - OTHER SPECIFIED HEALTH STATUS Status: Acute Current Visit: Yes (4) Normal vaginal delivery SNOMED Code(s): 15675621, 378543577 ICD Code: O80 - ENCOUNTER FOR FULL-TERM UNCOMPLICATED DELIVERY Status: Acute Current Visit: No - Patient Summary/Data Consults: Consultations 05/06/20 11:16 Consult to Grease Refiner Operator [CONS] Routine - Patient Instructions Diet: Regular Diet as Tolerated Activity: Apply Ice (PELVIC REST) Driving: May Drive Today Showering/Bathing: May Shower Notify Provider of: Fever, Increased Pain, Nausea and/or Vomiting - Discharge Plan *PRESCRIPTION DRUG MONITORING PROGRAM REVIEWED*: Yes *COPY OF PRESCRIPTION DRUG MONITORING REPORT IN PATIENT NEGRITO: Yes Home Medications: Home Meds #103/Iron Fumarate/Fa [ ] 1 each PO DAILY 06/19/17 [History] Ferrous Sulfate [Iron] 325 mg PO DAILY 05/05/20 [History] Sertraline [Zoloft] 25 mg PO DAILY 05/05/20 [History] Oxygen Therapy Mode: Room Air - Discharge Summary/Plan Comment DC Time >30 min.: Yes Discharge Summary/Plan Comment: home with self care check in 6 weeks - General Info Date of Service: 05/07/20 Admission Dx/Problem (Free Text: Patient Status Order with Admit Dx/Problem 05/05/20 11:00 Patient Status [ADT] Routine Admission Diagnosis/Problem Admission Diagnosis/Problem Term 05/05/20 01:45 inductin @ 40w0d. Subjective Update: Patient is now PPD1 of an uncomplicated . Lochia is minimal. She has had a bowel movement. Eating and drinking well. pain is well controlled with OTC analgesia. no acute concerns Functional Status: Reports: Pain Controlled - Review of Systems General: Reports: No Symptoms HEENT: Reports: No Symptoms Pulmonary: Reports: No Symptoms Cardiovascular: Reports: No Symptoms Gastrointestinal: Reports: No Symptoms Genitourinary: Reports: No Symptoms Musculoskeletal: Reports: No Symptoms Skin: Reports: No Symptoms Neurological: Reports: No Symptoms Psychiatric: Reports: No Symptoms - Patient Data Vitals - Most Recent: Last Vital Signs Temp 98.8 F 05/06/20 20:00 Pulse 78 05/06/20 20:00 Resp 16 05/06/20 20:00 BP 115/65 05/06/20 20:00 Pulse Ox 98 05/06/20 20:00 Weight - Most Recent: 219 lb Med Orders - Current: Current Medications Acetaminophen (Tylenol) 650 mg PO Q4H PRN PRN Reason: Pain (Mild 1-3) and fever Last Admin: 05/07/20 09:13 Dose: 650 mg Documented by: Benzocaine/Menthol (Dermoplast Pain Relief [place]) 0 gm TOP Q4H PRN PRN Reason: Perineal comfort measures Carboprost Tromethamine (Hemabate Ds) 250 mcg IM ASDIRECTED PRN PRN Reason: HEMORRHAGE Docusate Sodium (Colace) 100 mg PO BID PRN PRN Reason: Constipation Last Admin: 05/07/20 09:12 Dose: 100 mg Documented by: Tranexamic Acid 1,000 mg/ (Sodium Chloride) 110 mls @ 660 mls/hr IV ONETIME PRN PRN Reason: Bleeding Oxytocin/Sodium Chloride (Pitocin In Ns 30 Unit/500 Ml) 30 unit in 500 mls @ 2 mls/hr IV TITRATE AIDEN; Protocol Last Titration: 05/05/20 23:15 Dose: 0 munits/min, 0 mls/hr Documented by: Lactated Ringer's (Ringers, Lactated) 1,000 mls @ 125 mls/hr IV ASDIRECTED AIDEN Last Admin: 05/05/20 20:03 Dose: 125 mls/hr Documented by: Ibuprofen (Motrin) 800 mg PO Q8H PRN PRN Reason: Mild Pain or Fever Last Admin: 05/07/20 04:55 Dose: 800 mg Documented by: Lidocaine HCl (Xylocaine-Mpf 1%) 30 ml INJECT ASDIRECTED PRN PRN Reason: Perineal Repair Methylergonovine Maleate (Methergine) 0.2 mg IM ASDIRECTED PRN PRN Reason: Hemorrhage Misoprostol (Cytotec) 800 mcg RECTAL ASDIRECTED PRN PRN Reason: Hemorrhage Ondansetron HCl (Zofran) 4 mg IVPUSH Q4H PRN PRN Reason: Nausea/Vomiting Simethicone (Simethicone) 80 mg PO Q4H PRN PRN Reason: Gas Sodium Chloride (Saline Flush) 10 ml FLUSH ASDIRECTED PRN PRN Reason: Keep Vein Open Sodium Chloride (Saline Flush) 10 ml FLUSH ASDIRECTED PRN PRN Reason: Keep Vein Open Discontinued Medications Epinephrine HCl (Adrenalin) Confirm Administered Dose 1 mg .ROUTE .STK-MED ONE Stop: 05/05/20 17:45 Last Admin: 05/05/20 18:17 Dose: Not Given Documented by: Fentanyl (Sublimaze) Confirm Administered Dose 100 mcg .ROUTE .STK-MED ONE Stop: 05/05/20 17:45 Last Admin: 05/05/20 18:18 Dose: Not Given Documented by: Lactated Ringer's (Ringers, Lactated) 1,000 mls @ 999 mls/hr IV BOLUS ONE Stop: 05/05/20 12:00 Last Admin: 05/05/20 17:56 Dose: 999 mls/hr Documented by: Sodium Bicarbonate (Sodium Bicarbonate 4.2%) Confirm Administered Dose 2.5 meq .ROUTE .STK-MED ONE Stop: 05/05/20 17:45 Last Admin: 05/05/20 18:18 Dose: Not Given Documented by: Sufentanil Citrate (Sufenta) Confirm Administered Dose 50 mcg .ROUTE .STK-MED ONE Stop: 05/05/20 17:45 Last Admin: 05/05/20 18:18 Dose: Not Given Documented by: - Exam General: Reports: Alert, Oriented Lungs: Reports: Clear to Auscultation, Normal Respiratory Effort Cardiovascular: Reports: Regular Rate, Regular Rhythm GI/Abdominal Exam: Normal Bowel Sounds (uterus firm, nontender and 2cm below umbilicus) Back Exam: Reports: Normal Inspection Extremities: Normal Inspection (trace edema) Skin: Reports: Warm, Intact
[2020-05-07] MEDS ORDERED: fentaNYL 100 MCG/2 ML SDV ITHECAL ONE (10:14)
[2020-05-07] MEDS ORDERED: Sodium Chloride 0.9% 20 ML SDV ONE (10:14)
[2020-05-07] MEDS ORDERED: EPINEPHrine 1 MG/1 ML Amp ONE (10:14)
[2020-05-07] MEDS ORDERED: Sodium Bicarbonate 4.2% 2.5 MEQ/5 ML SDV ONE (10:14)
== END 2020-05-07 10:15 | disposition home or self-care (01) | DRG 560 ==
LOC: UNDOADMOB 11:00 → DL.OB 11:00 → OBSVTOIN 21:12 → DL.OB 22:12
PROVIDERS: ADMIT Family Medicine; ATTEND Family Medicine
PROC: 10E0XZZ Delivery of Products of Conception, External Approach (ICD-10-PCS; principal; 2020-05-05)
PROC: 10907ZC Drainage of Amniotic Fluid, Therapeutic from Products of Conception, Via Natural or Artificial Opening (ICD-10-PCS; 2020-05-05)
PROC: 3E033VJ Introduction of Other Hormone into Peripheral Vein, Percutaneous Approach (ICD-10-PCS; 2020-05-05)
PROC: 3E0R3BZ Introduction of Anesthetic Agent into Spinal Canal, Percutaneous Approach (ICD-10-PCS; 2020-05-05)
PROC: 00HU33Z Insertion of Infusion Device into Spinal Canal, Percutaneous Approach (ICD-10-PCS; 2020-05-05)
DX: O99.344 Other mental disorders complicating childbirth (principal); Z37.0 Single live birth; F41.9 Anxiety disorder, unspecified; O99.02 Anemia complicating childbirth; D64.9 Anemia, unspecified; O77.0 Labor and delivery complicated by meconium in amniotic fluid; Z3A.40 40 weeks gestation of pregnancy; Z20.828 Contact with and (suspected) exposure to other viral communicable diseases; Z28.82 Immunization not carried out because of caregiver refusal
CPT/HCPCS: 01967; 36415; 59409; 85027; A9270-GY; J0171; J2590; J3010; J7120; U0002

== ENCOUNTER 2022-08-19 02:54 | Inpatient (IN) | payer BC ==
[2022-08-19] MEDS ORDERED: Acetaminophen 325 MG Tab PO PRN ×2 (13:55→23:12)
[2022-08-19] MEDS ORDERED: Ondansetron 4 MG/2 ML SDV IVPUSH PRN (13:55)
[2022-08-19] MEDS ORDERED: Lactated Ringers 1,000 ML IV ONE (13:55)
[2022-08-19] MEDS ORDERED: fentaNYL 100 MCG/2 ML SDV SUBCUT PRN (13:55)
[2022-08-19] MEDS ORDERED: Tranexamic Acid 1,000 MG in Sodium Chloride 0.9% 100 ML IV PRN (13:55)
[2022-08-19] MEDS ORDERED: Misoprostol 400 MCG (4 X 100 MCG TAB) RECTAL PRN (13:55)
[2022-08-19] MEDS ORDERED: Sodium Chloride 0.9% 10 ML Syringe FLUSH PRN ×2 (13:55→13:58)
[2022-08-19] MEDS ORDERED: Lidocaine 1% 30 ML SDV INJECT PRN (13:55)
[2022-08-19] MEDS ORDERED: Methylergonovine 0.2 MG/1 ML Amp IM PRN (13:55)
[2022-08-19] MEDS ORDERED: Nalbuphine 20 MG/1 ML Amp IM PRN (13:55)
[2022-08-19] MEDS ORDERED: Carboprost Tromethamine 250 MCG/1 ML Amp IM PRN (13:55)
[2022-08-19] MEDS: Lactated Ringers 1,000 ML IV SCH ×2 (15:08→20:17)
[2022-08-19] MEDS: Oxytocin/Normal Saline 30 UNIT/500 ML BAG IV SCH (15:09)
[2022-08-19] MEDS ORDERED: ePHEDrine 50 MG/ML SDV IVPUSH PRN (19:55)
[2022-08-19] MEDS ORDERED: Phenylephrine HCl In 0.9% NaCl 1 MG/10 ML Syringe IVPUSH PRN (19:55)
[2022-08-19] MEDS ORDERED: Ropivacaine 200 MG in Premix Bag 1 BAG EPIDUR SCH (20:00)
[2022-08-19] MEDS ORDERED: Sodium Chloride 0.9% 10 ML Syringe FLUSH SCH (21:00)
[2022-08-19] MEDS ORDERED: Simethicone 80 MG Tab.Chew PO PRN (23:12)
[2022-08-19] MEDS ORDERED: Benzocaine/Menthol 20%-0.5% Spray 78 GM Cannister TOP PRN (23:12)
[2022-08-19] MEDS ORDERED: Benzocaine/Cetylpyridinium/Menthol Lozenge MUCMEM PRN (23:13)
[2022-08-19] MEDS ORDERED: Calcium Carbonate 500 MG Tab.Chew PO PRN (23:13)
[2022-08-20] MEDS: Oxytocin/Normal Saline 30 UNIT/500 ML BAG IV SCH (00:53)
[2022-08-20] MEDS: Ibuprofen 800 MG Tab PO PRN ×3 (03:00→22:06)
[2022-08-20] MEDS ORDERED: Labetalol 100 MG Tab PO ONE (03:53)
[2022-08-20] MEDS: Docusate Sodium 100 MG Cap PO PRN ×2 (08:07→22:06)
[2022-08-20] MEDS: Prenatal Multivitamin with Calcium/Folic Acid/Iron Tab PO SCH (08:07)
[2022-08-21] MEDS: Prenatal Multivitamin with Calcium/Folic Acid/Iron Tab PO SCH (09:46)
[2022-08-21] MEDS: Ibuprofen 800 MG Tab PO PRN (09:46)
[2022-08-21] MEDS: Docusate Sodium 100 MG Cap PO PRN (09:48)
== END 2022-08-21 12:00 | disposition home or self-care (01) | DRG 560 ==
LOC: DL.OB 13:38 → OBSVTOIN 22:23 → DL.OB 22:23
PROVIDERS: ADMIT Family Medicine; ATTEND Family Medicine
PROC: 10E0XZZ Delivery of Products of Conception, External Approach (ICD-10-PCS; principal; 2022-08-19)
PROC: 10907ZC Drainage of Amniotic Fluid, Therapeutic from Products of Conception, Via Natural or Artificial Opening (ICD-10-PCS; 2022-08-19)
PROC: 3E0R3BZ Introduction of Anesthetic Agent into Spinal Canal, Percutaneous Approach (ICD-10-PCS; 2022-08-19)
PROC: 00HU33Z Insertion of Infusion Device into Spinal Canal, Percutaneous Approach (ICD-10-PCS; 2022-08-19)
DX: O99.344 Other mental disorders complicating childbirth (principal); Z37.0 Single live birth; F41.9 Anxiety disorder, unspecified; F32.A Depression, unspecified; O99.02 Anemia complicating childbirth; O99.814 Abnormal glucose complicating childbirth; Z20.822 Contact with and (suspected) exposure to COVID-19; D64.9 Anemia, unspecified; Z3A.39 39 weeks gestation of pregnancy
CPT/HCPCS: 01960; 01967; 36415; 51702; 59409; 81003; 82565; 82570; 83615; 84156; 84450; 84460; 84520; 84550; 85027; A9270-GY; J2405; J2590; J2795; J7120; U0002